=== PATIENT | male | born 1980 ===

== ENCOUNTER → 2024-12-19 14:00 | Outpatient (BNVA) | payer MEDICAID, SELFPAY | PROVIDERS: Visit Provider Family Medicine | DX: Z11.4 Encounter for screening for human immunodeficiency virus [HIV] (principal); Z11.59 Encounter for screening for other viral diseases; F31.9 Bipolar disorder, unspecified; Z79.899 Other long term (current) drug therapy; F98.8 Other specified behavioral and emotional disorders with onset usually occurring in childhood and adolescence; F41.9 Anxiety disorder, unspecified; G47.00 Insomnia, unspecified; E55.9 Vitamin D deficiency, unspecified | CPT/HCPCS: 80053; 80061; 82306; 82607; 83036; 84443; 85025; 86803; 87806 ==